=== PATIENT | male | born 1975 | race Caucasian/White ===

== ENCOUNTER → 2017-07-03 | Outpatient (REF) | payer BC, OTHER ==
[~2017-07-03] MED LIST: ACEC5L PO; AMO500 PO; AMOX-559 PO; AMPH20TA17 PO; AMPH20TA18 PO; AMPH30TA10 PO; AUG875 PO; AZI250 PO; BUPR-126 PO; CODE120S4 PO; CYC10; CYC10 PO; ERYT400T73 PO; ESC10 PO; ESCI20TA38 PO; GUAI-225 PO; GUAI1CAP92 PO; KET10 PO; LAMO25TA64 PO; LIS50 PO; MOTRIN; NAP500; OXYC-865 PO; PER; PER PO; PHEN120S16 PO; PHEN120S18 PO; PRE20 PO; TRAZ-133 PO; TRAZ-163 PO; TRAZ150T8 PO; TRAZ50 PO
== END ==
LOC: ZZSENDIN 12:00
PROVIDERS: ATTEND Surgery
DX: D22.39 Melanocytic nevi of other parts of face (principal)
CPT/HCPCS: 88305

== ENCOUNTER 2018-01-26 03:33 | Emergency (ER) | payer BC ==
[~2018-01-26 03:33] MED LIST changes: -TRAZ-163 PO; +TRAZ100T31 PO
[2018-01-26 03:40] VITALS: BP 137/90
--- NOTE | 2018-01-26 03:44 | ER Report ---
History and Physical Time Seen By MD: 03:43 HPI/ROS CHIEF COMPLAINT: sinus pain and pressure HISTORY OF PRESENT ILLNESS: This is a 42 year old male. He is having severe pain in the left maxillary area. He was treated with a Z-pack recently, but no improvement, in fact feels worse. Having congestion of the left side of his face . sore throat with congestion. Breathing okay. No chest pain. Pain in face rated 9 on a 1-10 scale. Some swollen glands in the left neck. No nausea or vomiting. No fevers, but has had some chills with this the last few days. Allergies: Coded Allergies: No Known Allergies (Verified Allergy, Mild, 05/25/15) Home Meds Active Scripts Oxycodone Hcl/Acetaminophen (PERCOCET 5-325 MG TABLET) 1 Each Tablet, 1 EACH PO Q4H PRN for PAIN, #8 TAB 0 Refills Prov:PAKO LLANES MD 01/26/18 Ketorolac Tromethamine (KETOROLAC TROMETHAMINE) 10 Mg Tab, 10 MG PO Q6H PRN for PAIN, #12 TAB 0 Refills Prov:PAKO LLANES MD 01/26/18 Fluticasone Prop 50 Mcg Ns (FLONASE 50 MCG NS) 16 Gm Blanket.susp, 1 SPRAY NS BID, #1 BOT 0 Refills Prov:PAKO LLANES MD 01/26/18 Amoxicillin/Pot Clav 875-125 Mg Tab (AUGMENTIN 875-125 TABLET) 1 Each Tablet, 1 TAB PO Q12H, #20 TAB 0 Refills Prov:PAKO LLANES MD 01/26/18 Reported Medications Escitalopram Oxalate (LEXAPRO) 10 Mg Tab, 10 MG PO DAILY, TAB 07/10/14 Amphet Asp/Amphet/D-Amphet (ADDERALL 20 MG TABLET) 20 Mg Tablet, 20 MG PO DAILY 07/10/14 Trazodone Hcl (TRAZODONE HCL) 150 Mg Tablet, 150 MG PO QHS PRN for INSOMNIA, #60 1 Refill Take 50-150 mg by mouth at bedtime as needed. 05/05/13 Discontinued Scripts Amoxicillin/Pot Clav 875-125 Mg Tab (AUGMENTIN 875-125 TABLET) 1 Each Tablet, 1 TAB PO Q12H, #20 TAB Prov:JAIRO RODRIGUEZ NP 05/25/15 Reviewed Nurses Notes: Yes Hx Smoking: Yes Smoking Status: Never Smoker, Former Smoker Exposure to Second Hand Smoke?: Yes Hx Substance Use Disorder: No Hx Alcohol Use: Yes Constitutional Vital Sign - Last 24 Hours 01/26/18 03:40 Temp 97.7 Pulse 75 Resp 16 B/P (MAP) 137/90 Pulse Ox 93 O2 Delivery Room Air Physical Exam General Appearance: The patient is alert, has no immediate need for airway protection, having some acute distress from pain, ill appearing. Eyes: Pupils equal and round no injection. Has some bilateral mild conjunctivitis. ENT: Normal oral mucosa. Moist mucous membranes. Posterior oropharynx was erythematous, with purulent post nasal drainage thick. Nasal mucosa is very erythematous with severe mucous in the left. Maxillary pain in left. Bilateral ear effusions without signs of otitis. Neck: Neck is supple and with some tender left lymphadenopathy in posterior and anterior cervical chains. Respiratory: Chest is non tender, lungs are clear to auscultation. Cardiac: regular rate and rhythm Gastrointestinal: Abdomen is soft and non tender, no masses, bowel sounds normal. Musculoskeletal: Extremities have full range of motion. Skin: No rashes or lesions. DIFFERENTIAL DIAGNOSIS: After history and physical exam differential diagnosis was considered for sinusitis. Medical Decision Making ED Course/Re-evaluation ED Course Discussed treatment, will give Augmentin, start Flonase. Toradol and Percocet limited supply to help with pain. Decision to Disposition Date: Jan 26, 2018 Decision to Disposition Time: 03:58 Depart Departure Latest Vital Signs Vital Signs Date Time Temp Pulse Resp B/P (MAP) Pulse Ox O2 Delivery O2 Flow Rate FiO2 01/26/18 03:40 97.7 75 16 137/90 93 Room Air Impression: Primary Impression: Acute sinus infection Condition: Improved Disposition: HOME OR SELF-CARE New Scripts Oxycodone Hcl/Acetaminophen (PERCOCET 5-325 MG TABLET) 1 Each Tablet 1 EACH PO Q4H PRN for PAIN, #8 TAB 0 Refills Prov: PAKO LLANES MD 01/26/18 Ketorolac Tromethamine (KETOROLAC TROMETHAMINE) 10 Mg Tab 10 MG PO Q6H PRN for PAIN, #12 TAB 0 Refills Prov: PAKO LLANES MD 01/26/18 Fluticasone Prop 50 Mcg Ns (FLONASE 50 MCG NS) 16 Gm Blanket.susp 1 SPRAY NS BID, #1 BOT 0 Refills Prov: PAKO LLANES MD 01/26/18 Amoxicillin/Pot Clav 875-125 Mg Tab (AUGMENTIN 875-125 TABLET) 1 Each Tablet 1 TAB PO Q12H, #20 TAB 0 Refills Prov: PAKO LLANES MD 01/26/18 Patient Instructions: Sinusitis (ED) Additional Instructions: You have a sinus infection. You will need to follow-up with your primary care doctor in the next 7-10 days. Take the antibiotic Augmentin 875/125 twice a day for 10 days. Take Toradol 10mg, one every 6 hours as needed for pain. Take Percocet 5/325, one every 4hours as needed for pain. Nasal saline sprays or sinus rinses in during the day to help the sinuses drain. Problem Qualifiers Primary Impression: Acute sinus infection Sinusitis location: maxillary Recurrence: not specified as recurrent Qualified Codes: J01.00 - Acute maxillary sinusitis, unspecified PAKO LLANES MD Jan 26, 2018 03:44
[2018-01-26] MEDS ORDERED: AMOX-559 PO (03:59)
[2018-01-26] MEDS ORDERED: FLUT16SP19 NS (03:59)
[2018-01-26] MEDS ORDERED: LOR5/325 PO (03:59)
[2018-01-26] MEDS ORDERED: APAP/HYDROCODONE 325/5 TAB PO ONE (04:00)
[2018-01-26] MEDS ORDERED: ACET/HYDROC 5/325MG TH ER ONLY 2 TAB/BOTTLE PO ONE (04:00)
[2018-01-26] MEDS ORDERED: AMOX/CLAV 875 MG TAB PO ONE (04:00)
[2018-01-26] MEDS ORDERED: KETOROLAC 60 MG/2 ML VIAL IM ONE (04:15)
[2018-01-26] MEDS ORDERED: KET10 PO (04:16)
[2018-01-26] MEDS ORDERED: OXYC-865 PO (04:18)
[2018-01-26] MEDS ORDERED: oxyCODONE/ACETAMIN 5/325MG TH 2 TAB/BOTTLE PO ONE (04:20)
== END 2018-01-26 04:32 | disposition home or self-care (01) ==
LOC: ER 03:52
DX: J01.00 Acute maxillary sinusitis, unspecified (principal)
CPT/HCPCS: 96372; 99282; J1885